=== PATIENT | male | born 1945 | race Caucasian/White ===

== ENCOUNTER → 2017-08-12 | Outpatient (CLI) | payer MEDICARE ==
[~2017-08-12] MED LIST: ASPI-715 PO; BLOO-1775 MC; BLOO1STR16 MC; CEPH-13 PO; CLON-327 PO; CLON-329 PO; ENAL20TA99 PO; GLIM2TAB43 PO; GLIM4TAB50 PO; GLY25 PO; LANC-1295 MC; METF-410 PO; MOD PO; PNEU0.5D3 IM; SIMV-54 PO; TADA5TAB7 PO
== END ==
LOC: LAB 11:06
PROVIDERS: ATTEND Internal Medicine
DX: E11.65 Type 2 diabetes mellitus with hyperglycemia (principal); I10 Essential (primary) hypertension; E78.00 Pure hypercholesterolemia, unspecified
CPT/HCPCS: 36415; 82040; 82247; 82310; 82374; 82435; 82465; 82565; 82947; 83036; 83718; 84075; 84132; 84155; 84295; 84450; 84460; 84478; 84520

== ENCOUNTER → 2018-01-04 | Outpatient (CLI) | payer MEDICARE ==
[~2018-01-04] MED LIST changes: -METF-410 PO; +METF-411 PO
== END ==
LOC: LAB 11:36
PROVIDERS: ATTEND Internal Medicine
DX: E11.9 Type 2 diabetes mellitus without complications (principal); I10 Essential (primary) hypertension; E78.00 Pure hypercholesterolemia, unspecified
CPT/HCPCS: 36415; 82040; 82247; 82310; 82374; 82435; 82465; 82565; 82947; 83036; 83718; 84075; 84132; 84155; 84295; 84450; 84460; 84478; 84520

== ENCOUNTER 2018-05-22 14:36 | Outpatient (RCR) | payer MEDICARE ==
[~2018-05-22 14:36] MED LIST changes: -METF-411 PO; +METF-450 PO
[2018-05-22 15:02] LABS: PLATELET COUNT, AUTOMATED 184 K/uL (150-450)
--- NOTE | 2018-05-24 11:24 | RADIOLOGY IMAGING REPORT ---
FACILITY: [facility] - [place] PATIENT NAME: Donny Richards : 1945 MR: [id number] V: [id number] EXAM DATE: ORDERING PHYSICIAN: THOMAS KILPATRICK TECHNOLOGIST: Location: Patient: Donny Richards : 1945 Visit/Account:[id number] Date of Sevice: 05/24/2018 KIDNEYS HISTORY: Renal insufficiency, microhematuria COMPARISON: None. FINDINGS: Kidneys: Right kidney- 10.1 x 6.4 x 6.3 cm with normal parenchymal thickness and echogenicity. No ultrasound evident renal mass lesion or stone. Left kidney- 11.1 x 5.5 x 65.7 cm with normal parenchymal thickness and echogenicity. No ultrasound evident renal mass lesion or stone. Uniform and symmetric blood flow in each kidney by Doppler ultrasound. Hydronephrosis: None. Bladder: Morphologically unremarkable. Bilateral ureteric jets visualized. There is a moderate post void residual of 69 mL. Abdominal aorta and IVC: Patent by Doppler ultrasound. IMPRESSION: Moderate post void residual, otherwise normal renal ultrasound Report Dictated By: Carroll Harrison at 05/24/2018 11:19 AM Report E-Signed By: Carroll Harrison at 05/24/2018 11:20 AM WSN:[id number]
[2018-05-25] MEDS ORDERED: CLON-329 PO (15:38)
== END 2018-05-24 18:00 | disposition home or self-care (01) ==
LOC: US 14:36 → EDSTATUS 05-24 14:31 → US 05-24 18:00
PROVIDERS: ATTEND Internal Medicine Nephrology
DX: Z13.9 Encounter for screening, unspecified (principal); N28.9 Disorder of kidney and ureter, unspecified; I10 Essential (primary) hypertension; E78.5 Hyperlipidemia, unspecified; R31.21 Asymptomatic microscopic hematuria; E11.8 Type 2 diabetes mellitus with unspecified complications
CPT/HCPCS: 36415; 76705; 82040; 82043; 82310; 82374; 82435; 82550; 82565; 82570; 82947; 84100; 84132; 84156; 84160; 84165; 84295; 84520; 85025

== ENCOUNTER → 2018-06-05 | Outpatient (CLI) | payer MEDICARE | LOC: LAB 13:31 | PROVIDERS: ATTEND Urology | DX: Z12.5 Encounter for screening for malignant neoplasm of prostate (principal) | CPT/HCPCS: 36415; G0103; 84153 ==

== ENCOUNTER → 2018-06-08 | Outpatient (CLI) | payer MEDICARE | LOC: LAB 11:20 | PROVIDERS: ATTEND Nurse Practitioner | DX: D04.72 Carcinoma in situ of skin of left lower limb, including hip (principal) | CPT/HCPCS: 88305 ==

== ENCOUNTER → 2018-07-21 | Outpatient (REF) | payer MEDICARE ==
[~2018-07-21] MED LIST changes: +AMLO-125 PO; +SIMV-49 PO
== END ==
LOC: ZZSENDIN 10:30
PROVIDERS: ATTEND Urology
DX: N31.1 Reflex neuropathic bladder, not elsewhere classified (principal)
CPT/HCPCS: 88108

== ENCOUNTER → 2018-09-27 | Outpatient (CLI) | payer MEDICARE | LOC: LAB 14:51 | PROVIDERS: ATTEND Surgery | DX: L57.0 Actinic keratosis (principal) | CPT/HCPCS: 88305 ==